=== PATIENT | female | born 1960 | race American Indian/Alaskan Native ===

== ENCOUNTER 2017-08-04 10:17 | Emergency (ER) | payer SELFPAY ==
[2017-08-04] MEDS ORDERED: TESSALON PERLES PO ONE (16:07)
[2017-08-04] MEDS ORDERED: MOTRIN PO ONE ×2 (17:06→17:17)
--- NOTE | 2017-08-04 17:09 | Emergency Department Report ---
- General Chief Complaint: Upper Respiratory Infection Stated Complaint: FLU LIKE SYMPTOMS Time Seen by Provider: 08/04/17 16:07 Source: patient Mode of arrival: Ambulatory Limitations: No Limitations - History of Present Illness Initial Comments: This is a 57-year-old female nontoxic, well nourished in appearance, no acute signs of distress presents to the ED with c/o of productive cough, nasal congestion, rhinorrhea, sore throat, body aches, and frontal sinus pain 3 days. Patient discussed productive cough is yellow mucus production. Patient denies any recent travels, long car rides, recent hospital stays. She denies any calf pain, calf tenderness. Patient denies any chest pain, shortness of breath, difficulty breathing, headache, stiff neck, nausea, vomiting, fever, chills, blurry vision. Patient describes frontal sinus pain as aching and congestion. Patient denies any allergies or PMH. MD Complaint: cough, sore throat, rhinorrhea, nasal congestion, sinus pain -: days(s) (3) Severity: mild Severity scale (0 -10): 8 Quality: aching Consistency: constant Improves With: nothing Worsens With: nothing Associated Symptoms: headache (frontal sinus pain), rhinorrhea, nasal congestion , cough. denies: fever, chills, myalgias, diaphoresis, sore throat, stiff neck , chest pain, shortness of breath, abdominal pain, nausea, vomiting, diarrhea, dysuria, rash, confusion, right sweats, weight loss, epistaxis, hoarseness, ear pain Treatments Prior to Arrival: none - Related Data Previous Rx's Medication Instructions Recorded Last Taken Type Azithromycin [Zithromax Z-LEORA] 250 mg PO DAILY #6 tablet 08/04/17 Unknown Rx Benzonatate [Tessalon Perle] 100 mg PO Q6H PRN #20 capsule 08/04/17 Unknown Rx Losartan [Cozaar] 12.5 mg PO QDAY #30 tablet 08/04/17 Unknown Rx Allergies Allergy/AdvReac Type Severity Reaction Status Date / Time No Known Allergies Allergy Verified 08/04/17 11:31 ED Review of Systems ROS: Stated complaint: FLU LIKE SYMPTOMS Other details as noted in HPI Constitutional: denies: chills, fever Eyes: denies: eye pain, eye discharge, vision change ENT: throat pain. denies: ear pain Respiratory: cough. denies: shortness of breath, wheezing Cardiovascular: denies: chest pain, palpitations Endocrine: no symptoms reported Gastrointestinal: denies: abdominal pain, nausea, diarrhea Genitourinary: denies: urgency, dysuria, discharge Musculoskeletal: denies: back pain, joint swelling, arthralgia Skin: denies: rash, lesions Neurological: denies: headache, weakness, paresthesias Psychiatric: denies: anxiety, depression Hematological/Lymphatic: denies: easy bleeding, easy bruising ED Past Medical Hx - Past Medical History Previous Medical History?: No - Surgical History Past Surgical History?: Yes Additional Surgical History: gallstone - Social History Smoking Status: Never Smoker Substance Use Type: None - Medications Home Medications: Home Medications Medication Instructions Recorded Confirmed Last Taken Type Azithromycin [Zithromax Z-LEORA] 250 mg PO DAILY #6 tablet 08/04/17 Unknown Rx Benzonatate [Tessalon Perle] 100 mg PO Q6H PRN #20 capsule 08/04/17 Unknown Rx Losartan [Cozaar] 12.5 mg PO QDAY #30 tablet 08/04/17 Unknown Rx ED Physical Exam - General Limitations: No Limitations General appearance: alert, in no apparent distress - Head Head exam: Present: atraumatic, normocephalic, normal inspection - Eye Eye exam: Present: normal appearance, PERRL, EOMI. Absent: scleral icterus, conjunctival injection, nystagmus, periorbital swelling, periorbital tenderness Pupils: Present: normal accommodation - ENT ENT exam: Present: mucous membranes moist, TM's normal bilaterally, normal external ear exam - Expanded ENT Exam Expanded Ear exam: Present: normal external inspection Mouth exam: Present: normal external inspection, tongue normal. Absent: drooling, trismus, muffled voice, tongue elevation, laceration Teeth exam: Present: normal inspection Throat exam: Positive: tonsillar erythema, other (uvula midline. No abscess or swelling. ). Negative: tonsillomegaly, tonsillar exudate, R peritonsillar mass , L peritonsillar mass - Neck Neck exam: Present: normal inspection, full ROM. Absent: tenderness, meningismus, lymphadenopathy, thyromegaly - Respiratory Respiratory exam: Present: normal lung sounds bilaterally. Absent: respiratory distress, wheezes, rales, rhonchi, stridor, chest wall tenderness, accessory muscle use, decreased breath sounds, prolonged expiratory - Cardiovascular Cardiovascular Exam: Present: regular rate, normal rhythm, normal heart sounds. Absent: irregular rhythm, systolic murmur, diastolic murmur, rubs, gallop - GI/Abdominal GI/Abdominal exam: Present: soft, normal bowel sounds. Absent: distended, tenderness, guarding, rebound, rigid, diminished bowel sounds - Rectal Rectal exam: Present: deferred - Extremities Exam Extremities exam: Present: normal inspection, full ROM, normal capillary refill. Absent: tenderness, pedal edema, joint swelling, calf tenderness - Back Exam Back exam: Present: normal inspection, full ROM. Absent: tenderness, CVA tenderness (R), CVA tenderness (L), muscle spasm, paraspinal tenderness, vertebral tenderness, rash noted - Neurological Exam Neurological exam: Present: alert, oriented X3, CN II-XII intact, normal gait, reflexes normal - Psychiatric Psychiatric exam: Present: normal affect, normal mood - Skin Skin exam: Present: warm, dry, intact, normal color. Absent: rash ED Course Vital Signs 08/04/17 08/04/17 08/04/17 11:28 16:23 17:21 Temperature 98.8 F 98.5 F Pulse Rate 94 H 108 H Respiratory 16 18 Rate Blood Pressure 195/102 176/105 176/105 O2 Sat by Pulse 99 100 Oximetry 08/04/17 18:20 Temperature 98.5 F Pulse Rate 98 H Respiratory 18 Rate Blood Pressure 172/88 O2 Sat by Pulse 98 Oximetry - Reevaluation(s) Reevaluation #1: 08/04/17 17:07 Patient is speaking in full sentences with no signs of distress noted. ED Medical Decision Making - Medical Decision Making 57-year-old female that presents with upper respiratory infection and sinusitis. Patient is stable and was examined by me. Negative influenza swab. Chest x-ray has been obtained and dictated by radiologist with normal exam. Patient is notified of x-ray results with no questions noted by the patient. Patient received Tessalon Perle was placed that his symptoms of cough has improved subsided. Patient treated with zpak at discharge. Patient was instructed Follow-up with a primary care doctor in 3-5 days or if symptoms worsen and continue return to emergency room as soon as possible. At time time of discharge, the patient does not seem toxic or ill in appearance. No acute signs of distress noted. Patient agrees to discharge treatment plan of care. No further questions noted by the patient. Patient received Catapres 0.2 mg po in the ED due to elevated blood pressure. Patient stated she had high blood pressure many years ago and does not remeber what medication she took. I will discharge patient on Losartan and instructed patient to keep a daily diary of blood pressure and present it to primary care doctor. Vital signs stable prior to discharge. Critical care attestation.: If time is entered above; I have spent that time in minutes in the direct care of this critically ill patient, excluding procedure time. ED Disposition Clinical Impression: Upper respiratory infection Qualifiers: URI type: unspecified URI Qualified Code(s): J06.9 - Acute upper respiratory infection, unspecified Hypertension Qualifiers: Hypertension type: unspecified Qualified Code(s): I10 - Essential (primary) hypertension Disposition: DC- TO HOME OR SELFCARE Is pt being admited?: No Does the pt Need Aspirin: No Condition: Stable Instructions: Benzonatate (By mouth), Azithromycin (By mouth), Losartan (By mouth), Upper Respiratory Infection (ED), Hypertension (ED) Additional Instructions: Follow-up with a primary care doctor in 3-5 days or if symptoms worsen and continue return to emergency room as soon as possible. Keep a daily dairy of your blood pressure and present it to your primary care doctor. Prescriptions: Azithromycin [Zithromax Z-LEORA] 250 mg PO DAILY #6 tablet Benzonatate [Tessalon Perle] 100 mg PO Q6H PRN #20 capsule PRN Reason: Cough Losartan [Cozaar] 12.5 mg PO QDAY #30 tablet Referrals: LEIDA ALFREDO MD [Primary Care Provider] - 3-5 Days PRIMARY CARE, [Referring] - 3-5 Days [facility] [Outside] - 3-[address] [facility] [Outside] - 3-5 Days Forms: Work/School Release Form(ED)
[2017-08-04] MEDS ORDERED: CATAPRES PO ONE (17:14)
--- NOTE | 2017-08-04 19:21 | XRay Report ---
FINAL REPORT PROCEDURE: XR CHEST ROUTINE 2V TECHNIQUE: Two view PA lateral chest HISTORY: cough COMPARISON: No prior studies are available for comparison. FINDINGS: Heart is mild to moderately enlarged. Mild congestion. Calcified lymphadenopathy in the right hilar area. No acute lung disease seen at this time. IMPRESSION: No acute pathology seen
[2017-08-05 06:27] VITALS: BP 134/81
== END 2017-08-04 20:00 | disposition home or self-care (01) ==
LOC: ED 10:17
DX: J06.9 Acute upper respiratory infection, unspecified (principal); I10 Essential (primary) hypertension
CPT/HCPCS: 71046; 87400; 99283